=== PATIENT | male | born 1970 | race Caucasian/White ===

== ENCOUNTER 2019-04-12 11:46 | Day surgery (SDC) | payer OTHER ==
[~2019-04-12] VITALS: Ht 177.8 cm; Wt 98.0 kg
[~2019-04-12 11:46] MED LIST: CYCLOBENZAPRINE5 MG PO; HYDROCODON-ACE1 EAC3 PO; MELOXICAM15 MG PO; NORCO 5-325 TA1 EACH PO
--- NOTE | 2019-04-12 13:54 | NUR ---
04/12/19 1354 Stefanie Vallecillo 1348- PT ARRIVES TO PACU ALERT AND ORIENTED. RESP EVEN AND UNLABORED. OXYGEN SAT HIGH 90'S TO 100% ON 3L VIA NC. 1352- OXYGEN TITRATED OFF.
--- NOTE | 2019-04-13 09:42 | OR ---
[facility] [address], [place] [address] Signed DATE OF OPERATION: 04/12/2019 SURGEON: Maurizio Trujillo MD PREOPERATIVE DIAGNOSIS: Colon screening. POSTOPERATIVE DIAGNOSIS: Normal colon to cecum except for mild proctitis. PROCEDURE: Total colonoscopy to cecum with biopsy of rectum. ANESTHESIA: Intravenous sedation, fentanyl 100 mcg, and Versed 6 mg. INDICATION: This 48-year-old white man is a patient of Dr. Hook previously and is self-referred for consideration of colon screening. He has no family history of colon cancer, though his father was treated by me for lymphoma in the past. He has since . The patient has no symptoms of bleeding, diarrhea, or constipation. He was admitted to undergo screening colonoscopy understanding the risks of bleeding, infection, and perforation. FINDINGS: The prep was adequate. Complete colonoscopy was undertaken to the cecum. Fair amount of irrigation was required for green gelatinous residual mucoid stool. Complete evaluation was undertaken, however. There was no sign of polyps or diverticular formation as he did have mild inflammation of the rectosigmoid and rectum. Biopsies were obtained. DESCRIPTION OF PROCEDURE: The patient was brought to the endoscopy suite and placed in lateral decubitus position given intravenous sedation to the point of slurred speech and nystagmus. Digital rectal examination was normal. An Olympus video colonoscope was passed in the rectum and manipulated throughout the colon noting episodic areas of gelatinous mucoid bile-stained material requiring irrigation and suctioning. Ultimately, scope was advanced to the cecum itself. The ileocecal valve and appendiceal orifice were normal. Once irrigation was complete, the Electronically Signed By: MAURIZIO TRUJILLO MD 04/13/19 0942 PATIENT NAME: JAIR YOON OPERATIVE REPORT DATE OF : 66 REPORT #: [id number] PHYSICIAN: MAURIZIO TRUJILLO MD PCP: OTHER PCP REPORT IS CONFIDENTIAL AND NOT TO BE RELEASED WITHOUT AUTHORIZATION [facility] [address], [place] [address] Signed scope was carefully withdrawn and meticulous inspection showed no sign of polyps or diverticular formation. In the rectosigmoid and rectum, there was mild inflammation. Biopsies were obtained. Retroflexed view was undertaken and was normal. The scope was straightened, withdrawn, and removed. The patient was taken to recovery room in good condition. CONCLUDING DIAGNOSIS: Mild proctitis, possibly bowel prep related. PLAN: Recommend repeat colonoscopy in 10 years unless the pathology of biopsies is significantly adverse. MD HAILY Marmolejo/GARRY /[id number] cc: John Hook DO Copies: JOHN HOOK DO ~ Electronically Signed By: MAURIZIO TRUJILLO MD 04/13/19 0942 PATIENT NAME: JAIR YOON OPERATIVE REPORT DATE OF : 66 REPORT #: [id number] PHYSICIAN: MAURIZIO TRUJILLO MD PCP: OTHER PCP REPORT IS CONFIDENTIAL AND NOT TO BE RELEASED WITHOUT AUTHORIZATION
--- NOTE | 2019-04-13 15:14 | PATH ---
[facility] [address] [place], [place] [address] Signed SPECIMEN(S): A RECTUM SPECIMEN SOURCE: A. RECTUM CLINICAL HISTORY: Pre: Screening colonoscopy. Post: Mild proctitis. MICROSCOPIC DESCRIPTION: Sections reveal biopsies of colonic mucosa. The epithelial surface is intact with slightly decreased mucus-secreting ability. Glands are simple and tubular and reach all the way to the muscularis mucosae. The lamina propria is mildly expanded by a population of plasma cells, lymphocytes, and infrequent eosinophils. There are small scattered areas of intramucosal hemorrhage present. No acute inflammatory cells, excess intraepithelial lymphocytes, crypt abscesses, areas of fibrosis, or granulomas are seen. There is no evidence of malignancy or atypia. LJA:smn FINAL PATHOLOGIC DIAGNOSIS: Mucosa, rectum, biopsy: - Mild inactive proctitis with focal intramucosal hemorrhage. LJA:smn:C2NR GROSS DESCRIPTION: The specimen, labeled "MA, rectum biopsy," is received in formalin and consists of a 0.2 cm in greatest dimension, irregular mesa-white soft tissue fragment. The specimen is entirely submitted in cassette (A1). AR (under the direct supervision of a pathologist) The Gross Description was prepared using a voice recognition system. The report was reviewed for accuracy; however, sound-alike word errors, addition and/or deletions may occur. If there is any question about this report, please contact Client Services. PERFORMING LABORATORY: The technical component was performed by [facility], [address] [place] [id number] (Film Casting Operator: Daylin Restrepo MD; CLIA# [id number]). [facility] [address] [address] (Film Casting Operator: Rajendra Solis MD; CLIA# PATIENT NAME: JAIR YOON PATHOLOGY DATE OF : 66 REPORT #: [id number] PHYSICIAN: [facility] PCP: OTHER PCP REPORT IS CONFIDENTIAL AND NOT TO BE RELEASED WITHOUT AUTHORIZATION [facility] [address] [place] [address] [place], [place] [address] Signed [id number]). Diagnostician: Rajendra Solis MD Pathologist Electronically Signed 04/13/2019 Copies: ~ PATIENT NAME: JAIR YOON PATHOLOGY DATE OF : 66 REPORT #: [id number] PHYSICIAN: [facility] PCP: OTHER PCP REPORT IS CONFIDENTIAL AND NOT TO BE RELEASED WITHOUT AUTHORIZATION
== END 2019-04-12 14:30 | disposition home or self-care (01) ==
LOC: OPS 11:46 → DS 11:46 → OPS 14:00
PROVIDERS: Surgery
PROC: 0DBP8ZX Excision of Rectum, Via Natural or Artificial Opening Endoscopic, Diagnostic (ICD-10-PCS; principal; 2019-04-12 13:00)
DX: Z12.11 Encounter for screening for malignant neoplasm of colon (principal); K62.5 Hemorrhage of anus and rectum; K62.89 Other specified diseases of anus and rectum; G47.30 Sleep apnea, unspecified; Z88.8 Allergy status to other drugs, medicaments and biological substances; Z80.7 Family history of other malignant neoplasms of lymphoid, hematopoietic and related tissues
CPT/HCPCS: 99153; G0500; J2250; J3010; J7120

== ENCOUNTER 2019-05-09 13:42 | Emergency (ER) | payer OTHER ==
[~2019-05-09] VITALS: Ht 177.8 cm; Wt 98.0 kg
--- OUTSIDE RECORDS SUMMARY | ~2019-05-09 | XMS | Clinical Summary ---
Demographics + + + | Address | [address] | | | [place] [address] | + + + | Home Phone | | + + + | Preferred Language | Unknown | + + + | Marital Status | Single | + + + | Scientologist Affiliation | Unknown | + + + | Race | Unknown | + + + | Ethnic Group | Unknown | + + + Author + + + | Author | [facility] | | | and [place] | + + + | Organization | [facility] | | | and [place] | + + + | Address | Unknown | + + + | Phone | Unavailable | + + + Support + + + + + | Name | Relationship | Address | Phone | + + + + + | Cornejo,Anne | ECON | [address] | | | | | [place] | | | | | [address] | | + + + + + Care Team Providers + +------+ + | Care Media Account Executive Name | Role | Phone | + +------+ + | Vanda Izaguirre | PCP | | + +------+ + Allergies + + + + + + | Active Allergy | Reactions | Severity | Noted | Comments | | | | | Date | | + + + + + + | Meperidine | | | 05/27/20 | | | | | | 16 | | + + + + + + Medications + + + +---------+------+------+-------+ | Medication | Sig | Dispensed | Refills | Star | End | Statu | | | | | | t | Date | s | | | | | | Date | | | + + + +---------+------+------+-------+ | gabapentin | Take 300 mg by mouth | | 0 | | | Activ | | (NEURONTIN) 300 mg | 2 times daily. | | | | | e | | capsule | | | | | | | + + + +---------+------+------+-------+ Active Problems No known active problems Family History + + +------+ + | Medical History | Relation | Name | Comments | + + +------+ + | Alcohol abuse | Father | | | + + +------+ + | Cancer | Father | | | + + +------+ + | Diabetes | Father | | | + + +------+ + | Heart disease | Other | | | + + +------+ + | Hypertension | Other | | | + + +------+ + | Arthritis | Paternal | | | | | Grandmoth | | | | | er | | | + + +------+ + | Other (see comment) | Paternal | | Lung problem | | | Grandmoth | | | | | er | | | + + +------+ + | Stroke | Sister | | | + + +------+ + + +---------+--------+ + | Relation | Name | Status | Comments | + +---------+--------+ + | Father | | | | + +---------+--------+ + | Mother | JOSÉ | Alive | | | | [place] | | | + +---------+--------+ + | Other | | | | + +---------+--------+ + | Paternal Grandmother | | | | + +---------+--------+ + | Sister | | | | + +---------+--------+ + Social History + +-------+ +--------+------+ | Tobacco Use | Types | Packs/Day | Years | Date | | | | | Used | | + +-------+ +--------+------+ | Never Smoker | | | | | + +-------+ +--------+------+ + +---+---+---+ | Smokeless Tobacco: | | | | | Current User | | | | + +---+---+---+ + + +---------+ + | Alcohol Use | Drinks/We | oz/Week | Comments | | | ek | | | + + +---------+ + | Yes | 0 | 0.0 | Social | | | Standard | | | | | drinks or | | | | | | | | | | equivalen | | | | | t | | | + + +---------+ + + + + | Sex Assigned at | Date Recorded | | | | + + + | Not on file | | + + + + + + + | Job Start Date | Occupation | Industry | + + + + | Not on file | Not on file | Not on file | + + + + + + + + | Travel History | Travel Start | Travel End | + + + + + + | No recent travel history available. | + + Last Filed Vital Signs + + + + | Vital Sign | Reading | Time Taken | + + + + | Blood Pressure | 137/97 | 05/29/2016 1039 PST | + + + + | Pulse | 92 | 05/29/2016 1039 PST | + + + + | Temperature | - | - | + + + + | Respiratory Rate | - | - | + + + + | Oxygen Saturation | - | - | + + + + | Inhaled Oxygen | - | - | | Concentration | | | + + + + | Weight | 101.9 kg (224 lb 9.6 | 05/29/20161038 PST | | | oz) | | + + + + | Height | 177.8 cm (5' 10") | 05/29/20161038 PST | + + + + | Body Mass Index | 32.23 | 05/29/20161038 PST | + + + + Plan of Treatment + + + + + | Health Maintenance | Due Date | Last Done | Comments | + + + + + | Vaccine: | | | | | Dtap/Tdap/Td (1 - | 8 | | | | Tdap) | | | | + + + + + | Vaccine: Zoster (1 | | | | | of 2) | 9 | | | + + + + + | Vaccine: Influenza | | | | | (#1) | 9 | | | + + + + + Results Not on filefrom Last 3 Months Insurance + +--------+ +--------+ +---------+------+ | Payer | Benefi | Subscriber | Effect | Phone | Address | Type | | | t Plan | ID | vic | | | | | | / | | Dates | | | | | | Group | | | | | | + +--------+ +--------+ +---------+------+ | [employer] | PHP | [id number] | 09/12/19 | [phone] | | PPO | | PLAN | PEBB | | 14-Pre | 5 | | | | | PROV | | sent | | | | | | CHOICE | | | | | | + +--------+ +--------+ +---------+------+ + +--------+ +--------+ + + | Guarantor Name | Accoun | Relation to | Date | Phone | Billing Address | | | t Type | Patient | of | | | | | | | | | | + +--------+ +--------+ + + | Pradeep Cornejo | Person | Self | [birth year] | [address] | | | [place] | | 1971 | [phone] | [place] | | | [place] | | | [address] (Home) | [address] | + +--------+ +--------+ + + Advance Directives Patient has advance care planning documents on file. For more information, please contact:[facility] [place] [address]
--- OUTSIDE RECORDS SUMMARY | ~2019-05-09 | XMS | Clinical Summary ---
Demographics + + + | Address | [address] | | | [place] [address] | + + + | Home Phone | | + + + | Preferred Language | Unknown | + + + | Marital Status | Single | + + + | Jainism Affiliation | Unknown | + + + | Race | Unknown | + + + | Ethnic Group | Unknown | + + + Author + + + | Author | [facility] | | | and [place] | + + + | Organization | [facility] | | | and [place] | [...] [place] | | | | | [address] | | + + + + + Care Team Providers + +------+ + | Care Blackjack Dealer Name | Role | Phone | + [...] +---------+------+ | [employer] | PHP | [id number] | 09/12/19 | [phone] | | PPO | | PLAN | [...] | Self | [birth year] | [address] | | | [place] | | 1971 | [phone] | [place] | | | [place] | | | [address] (Home) | [address] | + +--------+ +--------+ + + Advance Directives Patient has advance care planning documents on file. For more information, please contact:[facility] [place] [address]
== END 2019-05-09 13:57 | disposition home or self-care (01) ==
LOC: ED 13:42
DX: M25.562 Pain in left knee (principal)

== ENCOUNTER 2021-05-13 02:58 | Emergency (ER) | payer OTHER ==
[~2021-05-13] VITALS: Ht 177.8 cm; Wt 95.2 kg
[2021-05-13] MEDS ORDERED: HYDROCODON-ACE1 EA10 PO (04:27)
== END 2021-05-13 04:50 | disposition home or self-care (01) ==
LOC: ED 02:58
DX: R10.9 Unspecified abdominal pain (principal); Z88.8 Allergy status to other drugs, medicaments and biological substances
CPT/HCPCS: 74176; 80053; 81001; 83690; 85025; 96374; 96375; 99284-25; J1170; J1885; J2405